=== PATIENT | male | born 1965 | race African-American/Black ===

== ENCOUNTER 2018-03-09 05:22 | Emergency (ER) | payer OTHER ==
[~2018-03-09] VITALS: Ht 172.7 cm; Wt 113.4 kg
[~2018-03-09 05:22] MED LIST: ARTIFICIAL TEAR15 M1 OPHTHALMIC; ASPIR 8181 MG PO; ATORVASTATIN CA40 MG PO; CARDIZEM CD240 MG PO; CARDIZEM30 MG PO; COUMADIN 5 MG TA5 M1 PO; DEPAKOTE 250MG250 M1 PO; ERYTHROMYCIN E3.5 G1 OPHTHALMIC; KEFLEX500 M1 PO; LISINOPRIL20 MG PO; LOPRESSOR25 PO; TOPROL XL50 MG PO; TRAMADOL 50 MG50 MG PO; TRAZODONE HCL50 MG PO; TYLENOL325 MG PO; VITAMIN D1000 UNI1 PO; VITAMIN D35000 UNIT PO; XARELTO20 MG PO
[2018-03-09] MEDS ORDERED: LISINOPRIL10 MG PO (05:55)
[2018-03-09] MEDS ORDERED: SERTRALINE HCL50 MG PO (05:56)
[2018-03-09 07:55] VITALS: BP 143/95
== END 2018-03-09 08:29 ==
LOC: ER 05:22
DX: S61.511A Laceration without foreign body of right wrist, initial encounter (principal); I48.91 Unspecified atrial fibrillation; I10 Essential (primary) hypertension; E78.00 Pure hypercholesterolemia, unspecified; I25.10 Atherosclerotic heart disease of native coronary artery without angina pectoris; E55.9 Vitamin D deficiency, unspecified; Z86.73 Personal history of transient ischemic attack (TIA), and cerebral infarction without residual deficits; Z79.899 Other long term (current) drug therapy; X58.XXXA Exposure to other specified factors, initial encounter; Y93.89 Activity, other specified; Y92.89 Other specified places as the place of occurrence of the external cause; Y99.8 Other external cause status

== ENCOUNTER 2019-01-11 13:18 | Emergency (ER) | payer OTHER ==
[~2019-01-11] VITALS: Ht 167.6 cm; Wt 104.3 kg
--- NOTE | ~2019-01-11 | EMS ---
[facility] [address] [place] [address] EMS Patient Care Report Name: DENIS ULLOA Room #: REG LAURA Zapata#: [id number] Admission: 01/11/19 ������������������ Attend Phys: Discharge: ������������������ Date of : 65 Report #: [id number] THIS REPORT FOR: //name// Report Transmitted: 01/11/2019 13:09 EMS Care Summary [place], [place]/[facility] Incident [id number] @ 01/11/2019 12:48 Incident Location [address] [place] [address] Patient DENIS ULLOA Male, 53 Years 1965 Patient Address [address] [place] [address] [address] [place] [address] Patient History Dementia,Hypertension,Seizures,Stroke/CVA,Atrial Fibrillation, Patient Allergies No known allergies, Patient Medications Depakote, Metoprolol, Lisinopril, Tylenol, Diltiazem, Atorvastatin, Tramadol, Xarelto, Zoloft, ASA, Chief Complaint HEAD PAIN Disposition Transported No Lights/[place] Dispatch Reason Falls Transported To [facility] Narrative PT FOUND SITTING IN WHEELCHAIR OUTSIDE. [facility] P45 ON SCENE. FD REPORTS THAT PT FELL AT 1100 TODAY AND THAT HE DID NOT WANT TO GO TO ED AT THAT TIME. PT STATES [facility] [address] [place] [address] EMS Patient Care Report Name: DENIS ULLOA Room #: REG LAURA Zapata#: [id number] Admission: 01/11/19 ������������������ Attend Phys: Discharge: ������������������ Date of : 65 Report #: [id number] THAT THE TOP OF HIS HEAD AND HIS RIGHT MIDDLE FINGER HURTS NOW AND HE WANTS TO GO. TRANSPORTED WITHOUT INCIDENT. Initial Vitals @13:04P: 76,R: 18,BP: 131/91,Pain: 4/10,GCS: 15,CO: 3,SpO2: 93,Revised Trauma: 12, Assessments @13:02MENTAL:No Abnormalities,SKIN:No Abnormalities,HEENT:Head/Face: Other,LUNG SOUNDS:ABDOMEN:PELVIS//GI:EXTREMITIES:PULSE:NEURO:No Abnormalities, Impression Injury of Face Procedures @13:02ALS AssessmentResponse: UnchangedSucceeded Timeline 12:47,Call Received 12:47,Dispatch Notified 12:48,Dispatched 12:49,En Route 13:01,On Scene 13:02,At Patient 13:02,ALS Assessment,Response: UnchangedSucceeded, 13:04,BP: 131/91 M,PULSE: 76,RR: 18 R,SPO2: 93 Ox,ETCO2: ,BG: ,PAIN: 4,GCS: 15, 13:06,Depart Scene 13:13,At Destination 13:29,Call Closed Disclaimer v1.1 Copyright 2019 [employer] This EMS Care Summary contains data elements from the applicable legal record (which may be displayed differently). It is designed to provide pertinent information for the following purposes: continuity of care, clinical quality, and state data reporting. The complete legal record is available to ED staff and administrators of the receiving hospital in [facility]'s Patient Tracker. All data is provided "as is."
[~2019-01-11 13:18] MED LIST changes: -ATORVASTATIN CA40 MG PO; +LIPITOR40 MG PO; +LISINOPRIL10 MG PO; +SERTRALINE HCL50 MG PO
[2019-01-11 13:53] LABS: HEMOGLOBIN 15.1 gm/dL (14.0-18.0); MCH 30.6 pg (26.0-34.0); MCHC 33.4 g/dL (28.0-37.0); MCV 91.5 fL (80.0-100.0); RBC 4.92 mil/uL (4.50-6.00); RDW 13.4 % (10.5-14.5); WBC 8.4 thou/uL (4.0-11.0)
[2019-01-11 14:01] LABS: CALCIUM 9.6 mg/dL (8.5-10.1); CREATININE 1.1 mg/dL (0.7-1.3)
[2019-01-11 14:05] LABS: APTT 26.8 Seconds (24.5-32.8); PROTIME 10.7 Seconds (9.3-11.4)
[2019-01-11 15:40] VITALS: BP 125/93
== END 2019-01-11 15:40 | disposition home or self-care (01) ==
LOC: ER 13:18
PROVIDERS: Emergency Medicine Emergency Medical Services
DX: S09.8XXA Other specified injuries of head, initial encounter (principal); I10 Essential (primary) hypertension; I48.91 Unspecified atrial fibrillation; E78.00 Pure hypercholesterolemia, unspecified; I25.10 Atherosclerotic heart disease of native coronary artery without angina pectoris; F41.1 Generalized anxiety disorder; Z86.73 Personal history of transient ischemic attack (TIA), and cerebral infarction without residual deficits; W05.0XXA Fall from non-moving wheelchair, initial encounter; Y92.89 Other specified places as the place of occurrence of the external cause; Y93.89 Activity, other specified; Y99.8 Other external cause status